=== PATIENT | female | born 1975 | race American Indian/Alaskan Native ===

== ENCOUNTER 2017-08-04 08:14 | Outpatient (CLI) | payer BC ==
--- NOTE | 2017-08-10 12:51 | Mammography Report ---
BILATERAL DIGITAL SCREENING MAMMOGRAM with CAD: 08/04/17 08:14:00 CLINICAL: Baseline screening. FINDINGS: The breasts are heterogeneously dense, which may obscure small masses. Right asymmetries with calcifications require additional workup. The left breast is negative. IMPRESSION: Right asymmetries and calcifications requiring further workup. BI-RADS CATEGORY: 0 -- Additional Imaging Evaluation Required RECOMMENDATION: Recall for right lateralmedial and spot magnification CC and LM views and right breast ultrasound if needed. ACR BI-RADS MAMMOGRAPHIC CODES: 0 = Needs additional imaging evaluation; 1 = Negative; 2 = Benign; 3 = Probably benign; 4 = Suspicious; 5 = Malignant; 6 = Known biopsy-proven malignancy COMMENT: 1. Dense breast tissue, i.e., adenosis, fibrocystic changes, etc., may obscure an underlying neoplasm. 2. Approximately 10% of cancers are not detected with mammography. 3. A negative mammography report should not delay biopsy if a clinically suspicious mass is present. COMMENT: Patient follow-up letters are generated via our [employer] application.
== END 2017-08-04 08:15 | disposition home or self-care (01) ==
LOC: SPVWC 08:14
PROVIDERS: ATTEND Physician Assistant
DX: Z12.31 Encounter for screening mammogram for malignant neoplasm of breast (principal); N64.89 Other specified disorders of breast; R92.1 Mammographic calcification found on diagnostic imaging of breast
CPT/HCPCS: 77067

== ENCOUNTER 2017-08-29 08:35 | Outpatient (CLI) | payer BC ==
--- NOTE | 2017-08-29 09:18 | Mammography Report ---
RIGHT DIGITAL DIAGNOSTIC MAMMOGRAM : 08/29/17 08:35:00 CLINICAL: Recalled for asymmetry and calcifications. COMPARISON:08/04/17 screening FINDINGS: Lateralmedial and spot magnification LM and CC views were performed. Satisfactory effacement of asymmetry. The group of calcifications has benign morphology. IMPRESSION: No mammographic evidence of malignancy. Benign calcifications. BI-RADS CATEGORY: 2 - - Benign RECOMMENDATION: Routine mammographic screening in one year. ACR BI-RADS MAMMOGRAPHIC CODES: 0 = Needs additional imaging evaluation; 1 = Negative; 2 = Benign; 3 = Probably benign; 4 = Suspicious; 5 = Malignant; 6 = Known biopsy-proven malignancy COMMENT: 1. Dense breast tissue, i.e., adenosis, fibrocystic changes, etc., may obscure an underlying neoplasm. 2. Approximately 10% of cancers are not detected with mammography. 3. A negative mammography report should not delay biopsy if a clinically suspicious mass is present. COMMENT: Patient follow-up letters are generated via our [employer] application.
== END 2017-08-29 08:36 | disposition home or self-care (01) ==
LOC: SPVWC 08:35
PROVIDERS: ATTEND Physician Assistant
DX: N64.89 Other specified disorders of breast (principal); R92.2 Inconclusive mammogram

== ENCOUNTER 2018-08-14 10:10 | Outpatient (CLI) | payer BC ==
--- NOTE | 2018-08-15 10:39 | Mammography Report ---
BILATERAL DIGITAL SCREENING MAMMOGRAM with CAD: 08/14/18 10:10:00 CLINICAL: Routine screening. COMPARISON:08/04/17 FINDINGS: There are bilateral scattered areas of fibroglandular density. No mass, architectural distortion or suspicious calcifications. IMPRESSION: No mammographic evidence of malignancy. BI-RADS CATEGORY: 2 -- Benign RECOMMENDATION: Routine mammographic screening in one year. COMMENT: Patient follow-up letters are generated by our [employer] application.
== END 2018-08-14 10:11 | disposition home or self-care (01) ==
LOC: SPVWC 10:10
PROVIDERS: ATTEND Physician Assistant
DX: Z12.31 Encounter for screening mammogram for malignant neoplasm of breast (principal); K21.9 Gastro-esophageal reflux disease without esophagitis
CPT/HCPCS: 77067

== ENCOUNTER 2019-10-16 09:17 | Outpatient (CLI) | payer BC ==
--- NOTE | 2019-10-16 13:22 | Mammography Report ---
DIGITAL SCREENING MAMMOGRAM WITH CAD, 10/16/2019 INDICATION: Routine screening mammography. TECHNIQUE: Digital bilateral 2D mammography was obtained in the craniocaudal and mediolateral obliq ue projections. This examination was interpreted with the benefit of Computer-Aided Detection analysi s. COMPARISON: 08/14/2018, 08/29/2017, 08/04/2017 FINDINGS: Breast Density: There are scattered areas of fibroglandular density. There is no evidence of dominant mass, suspicious calcifications or architectural distortion in eithe r breast. Right breast calcifications are again noted and have not significantly changed. IMPRESSION: Follow up recommendation: Routine yearly BI-RADS Category 2: Benign. A "normal" or negative report should not discourage follow up or biopsy of a clinically significant f inding. A written summary of these findings will be mailed to the patient. The patient will be entered into a mammography reporting system which will generate a reminder letter for the patient's next appointmen t at the appropriate interval. The [employer] recommends yearly mammograms starting at age 40 and continuing as l jaxson as a woman is in good health. Breast MRI is recommended for women with an approximate 20-25% or greater lifetime risk of breast cancer, including women with a strong family history of breast or ova richie cancer or who have been treated for Hodgkin's disease. Signer Name: Kim Hagen MD Signed: 10/16/2019 1:18 PM Workstation Name: [id number]
== END 2019-10-16 09:18 | disposition home or self-care (01) ==
LOC: SPVWC 09:17
PROVIDERS: ATTEND Family Medicine
DX: Z12.31 Encounter for screening mammogram for malignant neoplasm of breast (principal); N64.89 Other specified disorders of breast
CPT/HCPCS: 77067

== ENCOUNTER 2019-11-13 08:41 | Outpatient (CLI) | payer BC ==
--- NOTE | 2019-11-13 17:50 | Ultrasound Report ---
US pelvic complete, US transvaginal INDICATION / CLINICAL INFORMATION: HX OF FIBROIDS. TECHNIQUE: Transabdominal. Duplex Color Doppler used: Yes. COMPARISON: 11/19/2015 FINDINGS: UTERUS: Uterus is enlarged by fibroids. Measures 22 x 13.4 x 15.9 cm. -Endometrial stripe measures 1.5 cm. - Mass lesions: At least 8 fibroids are visualized within the uterus measuring up to approximately 6 cm. RIGHT ADNEXA: No significant ovarian cyst or mass. Normal color Doppler blood flow. LEFT ADNEXA: Left ovary is not visualized secondary overlying bowel gas. URINARY BLADDER: No significant abnormality. FREE FLUID: None. ADDITIONAL FINDINGS: None. IMPRESSION: 1. Numerous fibroids are seen within the uterus similar to prior examination. No acute abnormality id entified. Signer Name: Trevor Pascual MD Signed: 11/13/2019 5:46 PM Workstation Name: [id number]
--- NOTE | 2019-11-13 18:04 | Ultrasound Report ---
ULTRASOUND THYROID INDICATION: ENLARGED THYROID. COMPARISON: None available. FINDINGS: Right Lobe: Size: 5.2 cm. Echogenicity: Normal. Left Lobe: Size: 5.4 cm. Echogenicity: Normal. Isthmus: Normal Nodules: NODULE #1 Location: left lower Size: 3.3 x 1.7 x 2.6 cm Composition: Mixed cystic & solid = 1 point Echogenicity: Hypoechoic = 2 points Shape: Cewqj-rlrz-sxcr = 0 points Margin: Ill-defined = 0 points Echogenic Foci: None = 0 points ACR TI-RADS Score = 3. ACR TI-RADS Category TR3 (3 points). Recommendation: FNA. NODULE #2 Location: left upper Size: 1.6 x 1.4 x 0.8 cm Composition: Solid = 2 points Echogenicity: Hypoechoic = 2 points Shape: Gunfi-kjtd-vfjq = 0 points Margin: Ill-defined = 0 points Echogenic Foci: Punctate echogenic foci = 3 points ACR TI-RADS Score = 7+. ACR TI-RADS Category TR5 (7+ points). Recommendation: FNA. NODULE #3 Location: right mid Size: 1.5 x 1.1 x 0.7 cm Composition: Solid = 2 points Echogenicity: Hypoechoic = 2 points Shape: Fismw-cbji-sdpp = 0 points Margin: Smooth = 0 points Echogenic Foci: None = 0 points ACR TI-RADS Score = 4. ACR TI-RADS Category TR4 (4-6 points). Recommendation: Follow-up US in 1 year. NODULE #4 Location: right lower Size: 1.2 x 0.6 x 1 cm Composition: Mixed cystic & solid = 1 point Echogenicity: Hypoechoic = 2 points Shape: Zcixi-kzkr-zlqr = 0 points Margin: Smooth = 0 points Echogenic Foci: Punctate echogenic foci = 3 points ACR TI-RADS Score = 6. ACR TI-RADS Category TR4 (4-6 points). Recommendation: Follow-up US in 1 year. Lymph nodes: No abnormal lymph nodes Additional findings: None. IMPRESSION: 1. There are multiple thyroid nodules. The largest and most suspicious nodules within the left lobe. Fine-needle aspiration biopsy of the nodules in the left lobe is recommended. ACR TI-RADS Recommendations TI-RADS 1 (0 points) -- Benign. No FNA or follow-up. TI-RADS 2 (1-2 points) -- Not suspicious. No FNA or follow-up. TI-RADS 3 (3 points) -- Mildly suspicious. Follow if 1.5 cm. FNA if 2.5 cm. TI-RADS 4 (4-6 points) -- Moderately suspicious. Follow if 1.0 cm. FNA if 1.5 cm. TI-RADS 5 (7+ points) -- Highly suspicious. Follow if 0.5 cm. FNA if 1.0 cm. Signer Name: Erik Cha MD Signed: 11/13/2019 5:59 PM Workstation Name: [id number]
== END 2019-11-13 08:42 | disposition home or self-care (01) ==
LOC: SPVWC 08:41
PROVIDERS: ATTEND Physician Assistant
DX: D25.9 Leiomyoma of uterus, unspecified (principal); E04.2 Nontoxic multinodular goiter
CPT/HCPCS: 76536; 76817; 76830; 76856

== ENCOUNTER 2020-10-16 09:08 | Outpatient (CLI) | payer BC ==
--- NOTE | 2020-10-16 17:31 | Mammography Report ---
DIGITAL SCREENING MAMMOGRAM WITH CAD, 10/16/2020 CLINICAL INFORMATION / INDICATION: Routine screening mammography. TECHNIQUE: Digital bilateral 2D mammography was obtained in the craniocaudal and mediolateral obliqu e projections. This examination was interpreted with the benefit of Computer-Aided Detection analysis . COMPARISON: 08/14/2018 FINDINGS: Breast Density: There are scattered areas of fibroglandular density. No dominant mass, suspicious calcifications, or architectural distortion in either breast. No interval change. IMPRESSION: No mammographic evidence of malignancy. Follow up recommendation: Routine yearly BI-RADS Category 1: Negative. A "normal" or negative report should not discourage follow up or biopsy of a clinically significant f inding. A written summary of these findings will be mailed to the patient. The patient will be entered into a mammography reporting system which will generate a reminder letter for the patient's next appointmen t at the appropriate interval. The [employer] recommends yearly mammograms starting at age 40 and continuing as l jaxson as a woman is in good health. Breast MRI is recommended for women with an approximate 20-25% or greater lifetime risk of breast cancer, including women with a strong family history of breast or ova richie cancer or who have been treated for Hodgkin's disease. Signer Name: Patt Rahman MD Signed: 10/16/2020 5:26 PM Workstation Name: [id number]
== END 2020-10-16 09:09 | disposition home or self-care (01) ==
LOC: SPVWC 09:08
PROVIDERS: ATTEND Family Medicine
DX: Z12.31 Encounter for screening mammogram for malignant neoplasm of breast (principal)
CPT/HCPCS: 77067

== ENCOUNTER 2021-10-20 09:13 | Outpatient (CLI) | payer BC ==
--- NOTE | 2021-10-21 17:44 | Mammography Report ---
DIGITAL SCREENING MAMMOGRAM WITH CAD, 10/20/2021 CLINICAL INFORMATION / INDICATION: Routine screening mammography. SCREENING MAMMO TECHNIQUE: Digital bilateral 2D mammography was obtained in the craniocaudal and mediolateral obliqu e projections. This examination was interpreted with the benefit of Computer-Aided Detection analysis . COMPARISON: 10/16/2020 and 10/16/2019 FINDINGS: Breast Density: There are scattered areas of fibroglandular density. No dominant mass, suspicious calcifications, or architectural distortion in either breast. IMPRESSION: No mammographic evidence of malignancy. Follow up recommendation: Routine yearly screening mammogram. BI-RADS Category 1: NEGATIVE A "normal" or negative report should not discourage follow up or biopsy of a clinically significant f inding. A written summary of these findings will be mailed to the patient. The patient will be entered into a mammography reporting system which will generate a reminder letter for the patient's next appointmen t at the appropriate interval. The [employer] recommends yearly mammograms starting at age 40 and continuing as l jaxson as a woman is in good health. Breast MRI is recommended for women with an approximate 20-25% or greater lifetime risk of breast cancer, including women with a strong family history of breast or ova richie cancer or who have been treated for Hodgkin's disease. Signer Name: Luke Rudd MD Signed: 10/21/2021 5:40 PM Workstation Name: [id number]
== END 2021-10-20 09:14 | disposition home or self-care (01) ==
LOC: SPVWC 09:13
PROVIDERS: ATTEND Family Medicine
DX: Z12.31 Encounter for screening mammogram for malignant neoplasm of breast (principal)
CPT/HCPCS: 77067